=== PATIENT | female | born 1935 | race Caucasian/White ===

== ENCOUNTER 2017-06-08 07:38 | Emergency (ER) | payer MEDICARE ==
[2017-06-08] MEDS ORDERED: MECLIZINE HCL 25 MG TABLET PO ONE ×2 (08:04→09:25)
--- NOTE | 2017-06-08 08:07 | ER Document Report ---
ED General - General Information source: Patient TRAVEL OUTSIDE OF THE [place] IN LAST 30 DAYS: No - HPI Onset: Yesterday Associated symptoms: Other - see above <ERA SINGH - Last Filed: 06/08/17 08:07> <ESTELA REECE - Last Filed: 06/08/17 11:34> - General Chief Complaint: General Weakness Stated Complaint: DIZZY,WEAKNESS Time Seen by Provider: 06/08/17 07:58 Notes: Patient is a 81 year old female who presents to the ED with complaints of dizziness, headache and shakiness since yesterday morning. Patient states the room is spinning. Patient only experiences the dizziness when she gets up from a sitting to standing position or laying to sitting position. (ERA SINGH) Patient states the symptoms only occurred when she got up from bed and stood up. She states she was not really dizzy, but things "just went round and round and round". (ESTELA REECE) - Related Data Allergies/Adverse Reactions: No Known Allergies Allergy (Verified 06/08/17 07:57) Home Medications: Current Home Medications Amantadine HCl [Amantadine] 100 mg PO BID 06/08/17 [History] Carbidopa/Levodopa [Carbidopa-Levodopa 10-100 Tab] 1 each PO QID 06/08/17 [ History] Escitalopram Oxalate [Lexapro 10 mg Tablet] 10 mg PO DAILY 06/08/17 [History] Past Medical History - General Information source: Patient - Social History Smoking Status: Unknown if Ever Smoked Family History: Reviewed & Not Pertinent Renal/ Medical History: Denies: Hx Peritoneal Dialysis <ERA SINGH - Last Filed: 06/08/17 08:07> Review of Systems - Review of Systems Constitutional: No symptoms reported EENT: See HPI, Vertigo Cardiovascular: See HPI, Dizziness Respiratory: No symptoms reported Gastrointestinal: No symptoms reported Genitourinary: No symptoms reported Female Genitourinary: No symptoms reported Musculoskeletal: No symptoms reported Skin: No symptoms reported Hematologic/Lymphatic: No symptoms reported Neurological/Psychological: See HPI, Headaches -: Yes All other systems reviewed and negative <ERA SINGH - Last Filed: 06/08/17 08:07> Physical Exam - General General appearance: Appears well, Alert In distress: None - HEENT Head: Normocephalic, Atraumatic Eyes: Normal Extraocular movements intact: Yes Pupils: PERRL Neck: Other - stiff - Respiratory Respiratory status: No respiratory distress Chest status: Nontender Breath sounds: Normal Chest palpation: Normal - Cardiovascular Rhythm: Regular Heart sounds: Normal auscultation Murmur: No - Abdominal Inspection: Normal Distension: No distension Tenderness: Nontender - Back Back: Normal - Extremities General upper extremity: Normal inspection, Normal ROM, Other - stiff from parkinsons General lower extremity: Normal inspection, Normal ROM, Other - stiff from parkinsons - Neurological Neuro grossly intact: Yes - Psychological Associated symptoms: Normal affect, Normal mood - Skin Skin Temperature: Warm Skin Moisture: Dry Skin Color: Normal <ERA SINGH - Last Filed: 06/08/17 08:07> - Vital signs Vitals: Temp Pulse Resp BP Pulse Ox 97.8 F 98 16 202/98 H 98 06/08/17 07:40 06/08/17 07:40 06/08/17 07:40 06/08/17 07:40 06/08/17 07:40 Course <ERA SINGH - Last Filed: 06/08/17 08:07> - Laboratory Result Diagrams: 06/08/17 08:13 06/08/17 08:13 <ESTELA REECE - Last Filed: 06/08/17 11:34> - Re-evaluation Re-evalutation: 06/08/17 09:24 At this time the patient is able to sit up and bed without symptoms. She does complain of a nervous feeling in her legs and does not know if there is something wrong or if it is her Parkinson's. Her blood pressure is down to 175 systolic at this point. 06/08/17 11:29 The patient did get up and walk around without any dizziness or spinning type symptoms. She reported that her legs felt weak but she also felt this was probably her Parkinson's. She feels that her symptoms on standing have improved since taking the Antivert. (ESTELA REECE) - Vital Signs Vital signs: Temp Pulse Resp BP Pulse Ox 97.8 F 100 20 142/61 H 97 06/08/17 07:45 06/08/17 07:45 06/08/17 11:01 06/08/17 11:01 06/08/17 11:01 - Laboratory Laboratory results interpreted by me: 06/08/17 06/08/17 06/08/17 08:13 08:13 08:30 RDW 14.2 H Potassium 3.4 L Est GFR (Non-Af Amer) 59 L Glucose 127 H Ur Leukocyte Esterase SMALL H Discharge <ERA SINGH - Last Filed: 06/08/17 08:07> <ESTELA REECE - Last Filed: 06/08/17 11:34> - Discharge Clinical Impression: Vertigo High blood pressure Qualifiers: Hypertension type: unspecified Qualified Code(s): I10 - Essential (primary) hypertension Condition: Stable Disposition: HOME, SELF-CARE Additional Instructions: Vertigo You have experienced an episode of vertigo -- a whirling dizziness which may be accompanied by nausea and vomiting or staggering. Vertigo is often caused by an irritation of the inner ear, in which case it is called labyrinthitis. It can also be a symptom of a degenerating inner ear, nerve damage, or brain injury. Your physician has evaluated you to determine whether any further testing is necessary. Vertigo is often treated with dramamine or meclizine. These medications are helpful, but stronger medication may be needed if you are vomiting. Rest in bed. You should not drive or operate machinery until completely better. It may take one to three weeks for recovery. If there are new symptoms, such as decreased hearing or vision, severe headache, weakness or faintness, or confusion, call the physician. Your symptoms from this morning suggest an episode of vertigo. Take the medication as prescribed for the next few days to see if it suppresses those symptoms. Your blood pressure is quite elevated today, but he reports that is not unusual when you go to see the doctor. You should check your blood pressure at home for the next few days and if it remains elevated, then follow-up with your primary care provider. Follow-up with your doctor if not improving. RETURN TO THE EMERGENCY ROOM IF ANY NEW OR WORSENING SYMPTOMS. Prescriptions: Meclizine HCl [Antivert 25 mg Tablet] 25 mg PO TID PRN #20 tablet PRN Reason: Scribe Attestation: 06/08/17 09:16 I personally performed the services described in the documentation, reviewed and edited the documentation which was dictated to the scribe in my presence, and it accurately records my words and actions. (ESTELA REECE) Scribe Documentation - Scribe Written by Deshaun:: deshaun Mike, 06/08/2017, 805 acting as scribe for :: Coleen <ERA SINGH - Last Filed: 06/08/17 08:07>
[2017-06-08 08:21] LABS: ABSOLUTE LYMPHOCYTES (AUTO) 1.1 10^3/uL (0.5-4.7); ABSOLUTE MONOCYTES (AUTO) 0.3 10^3/uL (0.1-1.4); ABSOLUTE NEUT (AUTO) 3.4 10^3/uL (1.7-8.2); BASOPHILS % (AUTO) 0.6 % (0-2); HEMOGLOBIN 13.7 g/dL (12.0-15.5); HGB HCT DIFFERENCE 1.1; LYMPHOCYTES % (AUTO) 22.1 % (13-45); MEAN CORPUSCULAR HEMOGLOBIN 31.6 pg (27.0-33.4); MEAN CORPUSCULAR HGB CONC 34.4 g/dL (32.0-36.0); MEAN CORPUSCULAR VOLUME 92 fl (80-97); MONOCYTES % (AUTO) 5.3 % (3-13); RED BLOOD COUNT 4.36 10^6/uL (3.72-5.28); RED CELL DISTRIBUTION WIDTH 14.2 % (11.5-14.0); WHITE BLOOD COUNT 4.8 10^3/uL (4.0-10.5)
[2017-06-08 08:42] LABS: ALANINE AMINOTRANSFERASE 17 U/L (9-52); ALKALINE PHOSPHATASE 104 U/L (38-126); ANION GAP 7 (5-19); ASPARTATE AMINO TRANSFERASE 18 U/L (14-36); BILIRUBIN,DIRECT 0.3 mg/dL (0.0-0.4); BILIRUBIN,TOTAL 0.7 mg/dL (0.2-1.3); BLOOD UREA NITROGEN 18 mg/dL (7-20); CALCIUM 9.2 mg/dL (8.4-10.2); CARBON DIOXIDE 27 mmol/L (22-30); CHLORIDE 105 mmol/L (98-107); CREATININE RESULT 0.92 mg/dL (0.52-1.25); GLUCOSE 127 mg/dL (75-110); POTASSIUM 3.4 mmol/L (3.6-5.0); SODIUM 139.4 mmol/L (137-145); TOTAL PROTEIN 6.8 g/dL (6.3-8.2)
[2017-06-08 08:56] LABS: APPEARANCE,URINE CLEAR; BILIRUBIN,URINE NEGATIVE (NEGATIVE); GLUCOSE, URINE NEGATIVE (NEGATIVE); KETONES,URINE NEGATIVE (NEGATIVE); LEUKOCYTE ESTERASE,URINE SMALL (NEGATIVE); NITRITE,URINE NEGATIVE (NEGATIVE); PROTEIN,URINE NEGATIVE (NEGATIVE); URINE SPECIFIC GRAVITY 1.009; UROBILINOGEN,URINE NEGATIVE mg/dL (<2.0)
[2017-06-08 11:45] VITALS: BP 152/68
== END 2017-06-08 11:57 | disposition home or self-care (01) ==
LOC: ER 07:38
DX: R42 Dizziness and giddiness (principal); I10 Essential (primary) hypertension; R51 Headache; R53.1 Weakness
CPT/HCPCS: 99285; 36415; 85025; 80053; 81001; A9270

== ENCOUNTER 2018-10-28 06:37 | Emergency (ER) | payer MEDICARE ==
[2018-10-28] MEDS ORDERED: HYDROXYZINE PAMOATE 25 MG CAPSULE PO ONE (07:48)
--- NOTE | 2018-10-28 07:54 | ER Document Report ---
ED General - General Chief Complaint: Anxiety Stated Complaint: POSSIBLE ANXIETY Time Seen by Provider: 10/28/18 07:14 TRAVEL OUTSIDE OF THE [place] IN LAST 30 DAYS: No - HPI Notes: Patient is a 83-year-old female that presents to the emergency department for chief complaint of anxiety and panic attacks. Patient has been having increasing anxiety for the last 3-4 months. Family states that she has seen her neurologist and primary care doctor regarding this. She has Parkinson's and does not like to take a lot of medication. She has been recommended to take 2 carbidopa levodopa pills 4 times daily but will only take 1-1/2. Patient was also recently switched from Lexapro to Prozac 3 days ago. Family states 2-3 times a day she has episodes where she becomes very fidgety and anxious. She is standing and sitting repeatedly. She reports her legs feel like they will not stop moving. Patient has been seen trying to take deep breaths during these episodes by her family. Patient denies having any chest pain, palpitations, shortness of breath, nausea, vomiting and diaphoresis. She denies any recent illness. She states she does feel very anxious most of the time. Currently she states she is feeling better than she was about an hour ago. Family states these episodes last for about an hour at a time. Patient has had no change in her symptoms today but family was concerned that they are continuing despite changing over to Prozac. Past Medical History: Anxiety, Parkinson's Past Surgical History: Reviewed in chart Social History: Denies alcohol and tobacco Family History: Reviewed and noncontributory for presenting illness Allergies: Reviewed, see documented allergy list. REVIEW OF SYSTEMS: CONSTITUTIONAL : No fever No chills No diaphoresis No recent illness EENT: No vision changes No congestion No sore throat CARDIOVASCULAR: No chest pain No palpitations RESPIRATORY: No shortness of breath No cough No difficulty breathing GASTROINTESTINAL: No abdominal pain No nausea No vomiting No diarrhea GENITOURINARY: No dysuria No hematuria No difficulty urinating MUSCULOSKELETAL: No back pain No leg pain No arm pain SKIN: No rashes No lesions LYMPHATIC: No swollen, enlarged glands. NEUROLOGICAL: No lightheadedness No headache No weakness No paresthesias PSYCHIATRIC: anxiety No depression PHYSICAL EXAMINATION: Vital signs reviewed, nursing noted reviewed. GENERAL: Well-appearing, well-nourished and in no acute distress. HEAD: Atraumatic, normocephalic. EYES: Eyes appear normal, extraocular movements intact, sclera anicteric, conjunctiva are normal. ENT: nares patent, oropharynx clear without exudates. Moist mucous membranes. NECK: Normal range of motion, supple without lymphadenopathy LUNGS: Breath sounds clear to auscultation bilaterally and equal. No wheezes rales or rhonchi. HEART: Regular rate and rhythm without murmurs ABDOMEN: Soft, nontender, normoactive bowel sounds. No rebound, guarding, or rigidity. No masses appreciated. EXTREMITIES: Nontender, good range of motion, no pitting or edema. NEUROLOGICAL: No focal neurological deficits. Moves all extremities spontaneously Motor and sensory grossly intact on exam. PSYCH: Normal mood, normal affect. SKIN: Warm, Dry, normal turgor, no rashes or lesions noted on exposed skin - Related Data Allergies/Adverse Reactions: ropinirole [From Requip] Adverse Reaction (Verified 10/28/18 06:43) Past Medical History - Social History Smoking Status: Unknown if Ever Smoked Family History: Reviewed & Not Pertinent Patient has suicidal ideation: No Patient has homicidal ideation: No Renal/ Medical History: Denies: Hx Peritoneal Dialysis Psychiatric Medical History: Reports: Hx Depression Physical Exam - Vital signs Vitals: Temp Pulse Resp BP Pulse Ox 97.8 F 88 20 188/84 H 99 10/28/18 06:43 10/28/18 06:43 10/28/18 06:43 10/28/18 06:43 10/28/18 06:43 Course - Re-evaluation Re-evalutation: 10/28/18 07:51 Vitals reviewed. Nursing notes reviewed. Patient is resting comfortably in the bed. She has no current complaints. She has been having ongoing issues with anxiety and panic attacks for the last few months and family reports no change in her symptoms today. EKG was obtained showing no acute ischemia. Patient's vital signs are stable. She has only been on her new dose of Prozac for 3 days which is likely not long enough for this medication to fully take effect. Patient's daughter is asking about Valium however with the patient being very hesitant to take any medications because of side effects I feel the safer option is Vistaril. I did dianetic counselor the family on the possibility of delirium and increased somnolence as well as unsteady gait with the benzodiazepines. They seem comfortable with trying Vistaril for her exacerbations of anxiety. I did recommend she continue taking the carbidopa levodopa as prescribed. She will also continue taking the Prozac and talk to her primary care doctor about increasing her dose as tolerated. Patient was told to return to the emergency room for any new or worsening symptoms. She is in agreement with this plan. She was given a dose of Vistaril in the ED prior to discharge. She is stable at discharge. - Vital Signs Vital signs: Temp Pulse Resp BP Pulse Ox 97.8 F 88 20 188/84 H 99 10/28/18 06:43 10/28/18 06:43 10/28/18 06:43 10/28/18 06:43 10/28/18 06:43 - EKG Interpretation by Me Additional EKG results interpreted by me: 10/28/18 07:53 Interpreted by myself 0742: Normal sinus rhythm, rate 92, normal axis, LVH, no STEMI Discharge - Discharge Clinical Impression: Anxiety, Restless legs Condition: Stable Disposition: HOME, SELF-CARE Instructions: Anxiety ([facility]) Additional Instructions: Please return to the emergency department if you have any worsening, or concern of your symptoms. Please return to the emergency department if you develop chest pain, difficulty breathing, severe abdominal pain, or ongoing vomiting. Please follow-up with your primary care physician in 2-3 days and any other recommended physicians. If prescribed, take all medications as directed. If you have any questions or concerns do not hesitate to return the emergency department for evaluation. Prescriptions: Hydroxyzine Pamoate [Vistaril 25 mg Capsule] 25 mg PO Q6 PRN #30 capsule PRN Reason: Anxiety Referrals: RAYMOND PRATT MD [Primary Care Provider] - Follow up in 3-5 days
[2018-10-28 08:26] VITALS: BP 195/73
--- NOTE | 2018-10-28 12:46 | EKG REPORT ---
SEVERITY:- ABNORMAL ECG - SINUS RHYTHM LVH WITH IVCD AND SECONDARY REPOL ABNRM : Confirmed by: Julito Lai MD 28-Oct-2018 12:45:28
== END 2018-10-28 08:46 | disposition home or self-care (01) ==
LOC: ER 06:37
DX: F41.9 Anxiety disorder, unspecified (principal); G25.81 Restless legs syndrome; G20 Parkinson's disease
CPT/HCPCS: 93005; 99283; 93010; A9270